=== PATIENT | male | born 1995 | race Two or more races ===

== ENCOUNTER 2018-05-04 00:05 | Emergency (ER) | payer BC ==
[~2018-05-04] VITALS: Ht 175.3 cm; Wt 68.0 kg
[2018-05-04 00:12] VITALS: BP 133/78
== END 2018-05-04 01:09 | disposition home or self-care (01) ==
LOC: ER 00:17
DX: J02.9 Acute pharyngitis, unspecified (principal); Z88.0 Allergy status to penicillin
CPT/HCPCS: 87070; 87880; 99284; A4606; Z7610; 86403-TC